=== PATIENT | male | born 1985 | race Caucasian/White ===

== ENCOUNTER 2016-07-24 13:27 | Emergency (ER) ==
[2016-07-24 13:37] VITALS: BP 132/66
== END 2016-07-24 19:10 | disposition left against medical advice (07) ==
LOC: P.ED 13:27
DX: J00 Acute nasopharyngitis [common cold] (principal)
CPT/HCPCS: 87804

== ENCOUNTER 2016-09-17 05:38 | Emergency (ER) ==
[2016-09-17] MEDS ORDERED: IMODIUM PO ONE (06:19)
[2016-09-17 06:28] LABS: URINE SOURCE VOIDED
[2016-09-17 06:35] LABS: UR AMPHETAMINES QUAL NONE DETECTED (NONE DETECT); UR BARBITUATES QUAL NONE DETECTED (NONE DETECT); UR BENZODIAZEPIN QUAL NONE DETECTED (NONE DETECT); UR CANNABINOIDS QUAL NONE DETECTED (NONE DETECT); UR COCAINE QUAL NONE DETECTED (NONE DETECT); UR MDMA QUAL NONE DETECTED (NONE DETECT); UR METHADONE QUAL NONE DETECTED (NONE DETECT); UR METHAMPHETAMINE QUAL NONE DETECTED (NONE DETECT); UR OPIATES QUAL NONE DETECTED (NONE DETECT); UR OXYCODONE QUAL NONE DETECTED (NONE DETECT); UR PCP QUAL NONE DETECTED (NONE DETECT); UR TCA QUAL NONE DETECTED (NONE DETECT)
[2016-09-17 06:42] LABS: BILIRUBIN URINE NEGATIVE (NEGATIVE); BLOOD URINE NEGATIVE (NEGATIVE); CLARITY CLEAR (CLEAR); COLOR YELLOW; GLUCOSE URINE NEGATIVE (NEGATIVE); LEUKOCYTES URINE TRACE (NEGATIVE); NITRITE URINE NEGATIVE (NEGATIVE); PROTEIN URINE TRACE mg/dL (NEGATIVE); UROBILINOGEN URINE NORMAL
--- NOTE | 2016-09-17 06:42 | PROVIDER DOCUMENTATION ---
HPI-Abdominal Pain/GI Problem - General Chief Complaint: Diarrhea Stated Complaint: ABD PAIN Time Seen by Provider: 09/17/16 06:02 Source: patient Allergies/Adverse Reactions: Patient Allergies Allergy/AdvReac Type Severity Reaction Status Date / Time No Known Allergies Allergy Verified 11/09/14 18:58 Home Medications: Home Medication List Medication Instructions Recorded Confirmed Last Taken Type Diphenoxylate/Atropine [Lomotil] 1 each PO 4XDAY PRN PRN #7 tablet 11/09/14 Unknown Rx Promethazine [Phenergan] 1 - 2 tab PO Q6H PRN PRN #18 tablet 11/09/14 Unknown Rx Loperamide [Imodium] 2 mg PO BID PRN #10 capsule 09/17/16 Unknown Rx - History of Present Illness-ABD Nature of Presenting Problems: Reports diarrhea w/o F/C/N/V/abd pain started yesterday. Reports 5 - 6 episodes yesterday and about 4 episodes last night. Concerns for ? food poisoning. Reports no abd pain and nom other issues. Needs work excuse. Abdominal Pain Onset Location: reports: other (No pain) Pain Radiation: reports: no radiation Quality of Pain: reports: none Onset/Duration: reports: 24 hours ago Timing: reports: still present Activities at Onset: reports: none Exposure to sick contacts?: No Modifying Factors: improves with: nothing Associated Symptoms: denies: back/neck pain, chest pain, constipation, cough, nausea, shortness of breath, vomiting, weakness, trouble walking Last BM: this morning Dark Stools Present?: reports: none noticed Rectal Bleeding: reports: none # of Diarrhea Episodes: 10 Rectal Pain: reports: none # of Vomiting Episodes: 0 Bruising or Bleeding Gums?: No Similar Symptoms Previously?: No Recently seen or treated by another doctor?: No Review of Systems - Adult - REVIEW OF SYSTEMS - ADULT Constitutional: reports: no symptoms reported. denies: fever, fatique Eyes: reports: no symptoms reported Ears, Nose, Mouth & Throat: reports: no symptoms reported Cardiovascular: reports: no symptoms reported Respiratory: reports: no symptoms reported Gastrointestinal: reports: see HPI, diarrhea. denies: abdominal pain, constipation, difficulty swallowing, frequent heartburn, nausea, poor appetite, vomiting Genitourinary: reports: no symptoms reported Musculoskeletal: reports: no symptoms reported Integumentary: reports: no symptoms reported Neurological: reports: no symptoms reported Psychiatric: reports: no symptoms reported Endocrine: reports: no symptoms reported Hematologic/Lymphatic: reports: no symptoms reported All Other Systems: Reviewed and Negative Past History - Adult - PAST MEDICAL HISTORY-ADULT Review of Records: reports: Nursing Assessment Review, Medications Reviewed Major Childhood Illnesses: reports: denies history - PRIOR SURGERIES/PROCEDURES Surgical/Procedure History: reports: other (intestinal blockage as an ) - PRIOR HOSPITALIZATIONS Prior Hospitalizations: reports: none - IMMUNIZATION STATUS Childhood Immunizations: See Nurse Assessment Flu Vaccine: See Nurse Assessment - FAMILY HISTORY Family History: reviewed, not pertinent Physical Exam-General - PHYSICAL EXAM-ADULT Initial Vital Signs Reviewed: Yes - CONSTITUTIONAL General Appearance: appears well, alert, no apparent distress - EYES Eyes: PERRL/EOMI, pink conjunctivae - HEAD, EARS, NOSE, MOUTH & THROAT HENMT: normocephalic/atraumatic, moist mucous membranes, normal ENT inspection - NECK Neck: non-tender, full range of motion, supple - RESPIRATORY Respiratory: chest non-tender, lungs clear, normal breath sounds - CARDIOVASCULAR Cardiovascular: normal peripheral pulses, regular rate, rhythm, no edema - GASTROINTESTINAL (ABDOMEN) Abdominal Exam: normal bowel sounds, non tender, soft, no organomegaly, no pulsatile mass. negative: abdominal bruit, abnormal bowel sounds, distended, guarding, rigid, rebound, hepatomegaly, spleenomegaly, McBurney's point tenderness - MUSCULOSKELETAL Back Exam: normal inspection, no CVA tenderness - SKIN Integumentary: normal color, normal turgor, warm/dry - PSYCHIATRIC Psych/Mental Status: normal mood/affect, normal thought content, normal thought process, oriented x 3 Progress - PLAN OF CARE/RESULTS Progress/Plan/Lab Results: Laboratory Results - last 24 hr 09/17/16 09/17/16 06:20 06:20 Urine Source VOIDED Urine Color YELLOW Urine Clarity CLEAR Urine pH 5.0 Ur Specific [place] 1.020 Urine Protein TRACE A Urine Ketones NEGATIVE Urine Blood NEGATIVE Urine Nitrite NEGATIVE Urine Bilirubin NEGATIVE Urine Urobilinogen NORMAL Urine WBC TRACE A Urine Glucose NEGATIVE Urine Opiates Screen NONE DETECTED Ur Oxycodone Screen NONE DETECTED Urine Methadone Screen NONE DETECTED Ur Barbituates Screen NONE DETECTED Ur Tricyclics Screen NONE DETECTED Ur Phencyclidine Scrn NONE DETECTED Ur Amphetamines Screen NONE DETECTED U Methamphetamines Scrn NONE DETECTED Urine MDMA Screen NONE DETECTED U Benzodiazepines Scrn NONE DETECTED Urine Cocaine Screen NONE DETECTED U Cannabinoids Screen NONE DETECTED Orders Category Date Time Status URINALYSIS PL W/POSS RFLX CULT [URINALYSIS] Stat Lab 09/17/16 06:[address] Results [address] S[address] Stat Lab 09/17/16 06:20 Completed Loperamide [Imodium] Med 09/17/16 06:19 Discontinued 4 mg PO NOW ONE Vital Signs Temp Pulse Resp BP 09/17/16 05:43 97.5 F L 73 18 133/84 No Known Allergies Allergy (Verified 11/09/14 18:58) Diphenoxylate/Atropine [Lomotil] 1 each PO 4XDAY PRN PRN #7 tablet 11/09/14 Promethazine [Phenergan] 1 - 2 tab PO Q6H PRN PRN #18 tablet 11/09/14 Laboratory 09/17/16 09/17/16 06:20 06:20 Urine Source VOIDED Urine Color YELLOW Urine Clarity CLEAR Urine pH 5.0 Ur Specific [place] 1.020 Urine Protein TRACE A Urine Ketones NEGATIVE Urine Blood NEGATIVE Urine Nitrite NEGATIVE Urine Bilirubin NEGATIVE Urine Urobilinogen NORMAL Urine WBC TRACE A Urine Glucose NEGATIVE Urine Opiates Screen NONE DETECTED Ur Oxycodone Screen NONE DETECTED Urine Methadone Screen NONE DETECTED Ur Barbituates Screen NONE DETECTED Ur Tricyclics Screen NONE DETECTED Ur Phencyclidine Scrn NONE DETECTED Ur Amphetamines Screen NONE DETECTED U Methamphetamines Scrn NONE DETECTED Urine MDMA Screen NONE DETECTED U Benzodiazepines Scrn NONE DETECTED Urine Cocaine Screen NONE DETECTED U Cannabinoids Screen NONE DETECTED Departure - Departure Time of Disposition Order: 06:43 DIAGNOSIS: Diarrhea Qualifiers: Diarrhea type: unspecified type Qualified Code(s): R19.7 - Diarrhea, unspecified Disposition: HOME 01 Certified Medical Emergency: Emergent Condition: Stable Additional Instructions: Follow up with PCP in 1-2 days. Plenty of oral fluids. Return to ER as needed. Prescriptions: Loperamide [Imodium] 2 mg PO BID PRN #10 capsule PRN Reason: Diarrhea Referrals: None,PCP [Primary Care Provider] -
[2016-09-17 06:44] LABS: URINE EPITHELIAL CELLS <10 /HPF (<10); URINE RBC <10 /HPF (<10); URINE WBC <10 /HPF (<10)
[2016-09-17 06:45] LABS: URINE CULTURE PL NEEDED? YES
[2016-09-17 07:01] VITALS: BP 130/80
== END 2016-09-17 07:02 | disposition home or self-care (01) ==
LOC: P.ED 05:38
DX: R19.7 Diarrhea, unspecified (principal)
CPT/HCPCS: 80305; 81001; 87088; 99283